=== PATIENT | male | born 1980 | race Caucasian/White ===

== ENCOUNTER → 2017-10-07 | Outpatient (CLI) | payer BC ==
--- NOTE | 2017-10-07 22:09 | CT ---
EXAMINATION TYPE: CT foot RT wo con DATE OF EXAM: 10/07/2017 COMPARISON: None HISTORY: Patient complains of right foot pain and swelling. Nondisplaced fracture of the anterior pro cess right calcaneus per order. CT DLP: 94.9 mGycm Automated exposure control for dose reduction was used. FINDINGS: Images of the right foot show mild to moderate diffuse subcutaneous edema with more moderate diffuse fluid at level of ankle joint and along dorsal surface of the hind and midfoot with relative sparing of the plantar surface. No acute fracture or dislocation is present. There is prominent beak or ossific projection from the a nterior superior aspect of calcaneus seen best sagittal image 16 without linear lucency to suggest ac [facility] fracture. There is flexion in the second through fifth toes with varus positioning of distal fourth and fifth t oes. No significant spurring is seen. Distal Achilles tendon is intact. Plantar fascia is intact. Normal sinus tarsi fat is seen. Lisfranc joints are maintained. IMPRESSION: Mild to moderate diffuse subcutaneous edema with more moderate peripheral swelling at [place] of ankle joint and along dorsal surface of the forefoot and midfoot. Etiology uncertain.
== END | disposition home or self-care (01) ==
LOC: RADCTMAIN 18:20
PROVIDERS: ATTEND Orthopaedic Surgery
DX: R60.0 Localized edema (principal)